=== PATIENT | male | born 1975 | race Caucasian/White ===

== ENCOUNTER 2023-05-06 10:10 | Emergency (ER) | payer MEDICAID ==
[~2023-05-06] VITALS: Ht 167.6 cm; Wt 77.1 kg
[2023-05-06 10:31] VITALS: BP 147/89; TEMP 98.8
[2023-05-06] MEDS ORDERED: CEFTRIAXONE 1 G VIAL ONE (10:58)
[2023-05-06] MEDS ORDERED: PENICILLIN G BENZATHINE 2.4 MMU/4 ML ML IM ONE ×2 (10:59→11:00)
[2023-05-06] MEDS ORDERED: CEFTRIAXONE 1 G VIAL IM ONE (11:00)
[2023-05-06] MEDS ORDERED: LIDOCAINE HCL/PF 1% 30 ML SDV ONE (11:01)
[2023-05-06] MEDS ORDERED: DOXY100C2 PO (11:04)
[2023-05-06] MEDS ORDERED: AMOX-430 PO (11:04)
[2023-05-06] MEDS ORDERED: MUPI22OI2 TP (11:04)
[2023-05-06 11:08] VITALS: O2SAT 97
== END 2023-05-06 11:10 | disposition home or self-care (01) ==
LOC: ER 10:15
DX: Z11.3 Encounter for screening for infections with a predominantly sexual mode of transmission (principal); L73.9 Follicular disorder, unspecified; Z60.2 Problems related to living alone
CPT/HCPCS: J0558; J0696; J3490